=== PATIENT | female | born 1980 | race Caucasian/White ===

== ENCOUNTER → 2016-04-22 | Outpatient (CLI) | payer BC, MEDICAID ==
[2016-04-22 21:00] VITALS: BP 133/88
== END ==
LOC: MHUC 17:48
PROVIDERS: ATTEND Physician Assistant Medical
DX: K04.7 Periapical abscess without sinus (principal); J06.9 Acute upper respiratory infection, unspecified
CPT/HCPCS: 99213

== ENCOUNTER → 2016-05-13 | Outpatient (CLI) | payer BC, MEDICAID ==
[2016-05-13 19:02] VITALS: BP 136/88
== END ==
LOC: MHUC 17:46
PROVIDERS: ATTEND Nurse Practitioner Family
DX: K08.89 Other specified disorders of teeth and supporting structures (principal)
CPT/HCPCS: 99213